=== PATIENT | female | born 1970 | race Two or more races ===

== ENCOUNTER 2025-02-15 10:05 | Emergency (ER) | payer MEDICAID, SELFPAY ==
[2025-02-15 10:07] VITALS: BMI 26.1
[2025-02-15 10:39] VITALS: BP 127/88; PULSE 87; RESP 18; TEMP 36.9; O2SAT 97; BMI 26.1
--- NOTE | 2025-02-15 10:41 | XR_ITS ---
Examination: CT abdomen and pelvis without contrast. Coronal 3-D reconstructions. Sagittal 2-D reconstructions. Date and time of exam:February 15, 2025 1131 hours INDICATIONS: Abdominal pain and diarrhea 2 weeks CTDI: vol (mGy): 6.64 DLP: (mGycm): 364 Technique: Axial images of the abdomen have been obtained, 3 mm slice thickness Intravenous contrast material has not been administered. Low dose protocols were performed. One or more of the following dose reduction techniques were used; automated exposure control, adjustment of the mA and/or KV according to patient size, use of iterative reconstruction technique. Findings: No focal liver or splenic lesions Absent gallbladder No extra hepatic biliary tract dilatation No pancreatic edema No renal or ureteral calculi, no hydronephrosis Normal appendix Small fat-containing umbilical hernia Mildly fluid distended small bowel loops No bowel obstruction No diverticulitis Anteverted uterus Moderate osteopenia No bladder mass IMPRESSION: Mildly fluid distended small bowel loops, consider ileus, enteritis, clinical correlation advised No bowel obstruction Normal appendix
--- NOTE | 2025-02-15 10:41 | PD.EDRME ---
Rapid Medical Screening Exam [facility] Arrival date/time: 02/15/25 10:05 54-year-old female with no known medical history presents to the emergency room with a chief complaint of 8 out of 10 left lower quadrant abdominal pain that radiates to her bilateral flanks. Patient states she is also had diarrhea for 1 week. Patient denies any blood in the stool. I have greeted and performed a focused initial assessment of this patient. A comprehensive ED assessment and evaluation of the patient, analysis of all test results, and completion of the medical decision making process will be conducted by additional ED providers. Chief Complaint: Nausea/Vomiting/Diarrhea Time Seen by Provider: 02/15/25 10:12 Vital signs: Vital Signs Temperature 98.4 F 02/15/25 10:39 Pulse Rate 87 02/15/25 10:39 Respiratory Rate 18 02/15/25 10:39 Blood Pressure 127/88 H 02/15/25 10:39 Pulse Oximetry (%) 97 02/15/25 10:39 Oxygen Delivery Method Room Air 02/15/25 10:39 Vital signs reviewed by provider: Yes
[2025-02-15 11:30] LABS: Collection Type, Urine Clean Catch; RBC,Urine 0 /hpf (0-3); WBC,Urine 0 /hpf (0-5)
[2025-02-15 11:41] LABS: Basophils % (Auto) 1 % (0-2.5); Eosinophils # (Auto) 0.1 Thou/mm3 (0.0-0.5); Eosinophils % (Auto) 3 % (0-10); Hematocrit 42.8 % (36.0-46.0); Hemoglobin 15.1 g/dL (12.0-16.0); Immature Granulocytes % (Auto) 0 % (0-0); Immature Granulocytes Auto 0.02 Thou/mm3 (0.00-0.00); Lymphocytes # (Auto) 1.5 Thou/mm3 (1.0-4.8); Lymphocytes % (Auto) 29 % (10-50); Mean Corpuscular HGB Conc 35.3 g/dl (31.0-37.0); Mean Corpuscular Hemoglobin 30.9 pg (25.0-35.0); Mean Corpuscular Volume 88 fL (80-100); Monocytes # (Auto) 0.3 Thou/mm3 (0.0-0.8); Monocytes % (Auto) 6 % (0-12); Neutrophils # (Auto) 3.3 Thou/mm3 (1.8-7.7); Neutrophils % (Auto) 62 % (37-80); Nucleated Red Blood Cell % 0 /100 WBC (0); Platelet Count 288 Thou/mm3 (140-440); RDW Standard Deviation 38.4 fL (36.4-46.3); Red Blood Count 4.88 Miln/mm3 (4.00-5.20); White Blood Count 5.3 Thou/mm3 (3.6-11.0)
[2025-02-15 11:58] LABS: Alanine Aminotransferase 40 U/L (10-49); Albumin, Serum 4.6 gm/dL (3.5-5.0); Albumin/Globulin Ratio 1.6 (1.2-2.2); Alkaline Phosphatase 77 U/L (46-116); Anion Gap 9 (7-16); Aspartate Amino Transferase 30 U/L (0-34); BUN/Creatinine Ratio 10 Ratio (12-20); Bilirubin,Total 0.6 mg/dL (0.3-1.2); Blood Urea Nitrogen 8 mg/dL (9-23); Calcium 9.8 mg/dL (8.3-10.6); Calcium (Corrected) 9.8 mg/dL (8.5-10.1); Carbon Dioxide 27.2 mMol/L (20.0-31.0); Chloride 104 mMol/L (98-107); Creatinine (Component) 0.8 mg/dL (0.6-1.3); Estimated Creatinine Clearance 78.6 mL/min (>60); Globulin 2.9 gm/dL (2.3-3.5); Glucose 110 mg/dL (74-106); Lipase 56 U/L (12-53); Osmolality,Calculated 278 (275-295); Potassium 3.9 mMol/L (3.4-5.1); Sodium 140 mMol/L (136-145); Total Protein 7.5 gm/dL (5.7-8.2); eGFR > 60 See Note
--- NOTE | 2025-02-15 12:06 | EDNOTE_ITS ---
ED Abdominal Pain RME/HPI General Chief Complaint: Nausea/Vomiting/Diarrhea Stated complaint: VOMITING, DIARRHEA, L) SIDE ABD PAIN X 9 DAYS Time seen by provider: 02/15/25 10:12 Arrival date/time: 02/15/25 10:05 54 year old female present to emergency room with c/o of LLQ for 9 days. nausea,vomiting, diarrhea. no international travel. LOCATION: generalized periumbical abdominal pain SEVERITY: Symptoms are described as being severe with limitations on activities of daily living QUALITY: Symptoms are described as being cramping CONTEXT: The patient is unable to identify any inciting events. DURATION/TIMING: The symptoms started approximately 9 day ago and have been constant this then, and have been progressive getting worse. ASSOCIATED SYMPTOMS: The patient is unable to identify any other associated symptoms. MODIFYING FACTORS: The patient is unable to identify any alleviating or aggravating symptoms. PERTINENT ROS: reports emesis is nonbloody, diarrhea is nonbloody, no recent foreign travel, no recent ingestion of raw seafood or meat, no head trauma, no headache, no chest pain, no orthostatis symptoms, denies any toxicological ingestions REVIEW OF SYSTEMS: See History of Present Illness - with the exception of those mentioned in the history of present illness, all other systems reviewed and reported as negative GENERAL: In general the patient is awake, interactive, in an emergency department gurney. HEAD/EYES/EARS/NOSE/THROAT: normo-cephalic, atraumatic, mucus membranes are mo ist, anicteric, palpebral conjunctiva is pink, trachea is midline. CARDIOVASCULAR: regular rate and regular rhythm, no murmurs, heart sounds are not distant, strong pulses in all four extremities that are equal and symmetric bilateral upper and lower extremities, normal capillary refill. CHEST/PULMONARY: normal chest rise and fall, good air movement, clear to auscultation bilaterally, normal inspiratory to expiratory ratios without evidence of respiratory distress. NECK: No midline/Paraspinal tenderness, no step off ROM/Strenght intact No Kernig and bruzinski sign. No trauma ABDOMEN: soft, not tender, no masses appreciated BACK: normal range of motion without pain. NEUROLOGICAL: cranio-facial features are symmetric, moves all four extremities equally without obvious limitations or weakness. EXTREMITY: no tenderness to palpation over the long bones or large joints of the bilateral upper and lower extremities, no joint swelling, no joint erythema, no signs of trauma, no unilateral leg swelling and no peripheral edema. SKIN: warm, dry, well-perfused, no jaundice, no rash, no telangiectasias or petechia. PSYCH: calm, cooperative, no evidence of psychosis or agitation RME / HPI RME / HPI narrative: 02/15/25 10:05 54-year-old female with no known medical history presents to the emergency room with a chief complaint of 8 out of 10 left lower quadrant abdominal pain that radiates to her bilateral flanks. Patient states she is also had diarrhea for 1 week. Patient denies any blood in the stool. I have greeted and performed a focused initial assessment of this patient. A comprehensive ED assessment and evaluation of the patient, analysis of all test results, and completion of the medical decision making process will be conducted by additional ED providers. Related Data Home Medications ?Medication ?Instructions ?Recorded ?Confirmed multivitamin (Multiple Vitamins 1 tab PO QAM 12/05/20 12/05/20 tablet) Previous Rx's ?Medication ?Instructions ?Recorded docusate sodium 100 mg capsule 100 mg PO BID #60 caps 12/06/20 (Colace) hydrocodone 5 mg-acetaminophen 325 1 tab PO Q6H PRN pa in (scale score 12/06/20 mg tablet (Harrold) 7-10) #20 tabs ibuprofen 600 mg tablet 600 mg PO Q8H PRN pain (scal e 12/06/20 score 4-6) #15 tabs azithromycin 500 mg tablet 500 mg PO QDAY 3 days #3 ta bs 02/15/25 ondansetron 4 mg disintegrating 4 mg PO Q8H PRN nausea and 02/15/25 tablet vomiting #14 tabs Allergies Allergy/AdvReac Type Severity Reaction Status Date / Time Dunlevy And Derivatives Allergy Blister Verified 02/15/25 10:09 Course Quality Measures none Orders Category Date Time Status CT abdomen pelvis wo con Stat Exams 02/15/25 10:41 Completed CBC Stat Lab 02/15/25 11:12 Completed CMP [Comprehensive Metabolic Panel] Stat Lab 02/15/25 11:12 Completed HCG Qualitative,Urine Stat Lab 02/15/25 11:00 Completed Lipase Stat Lab 02/15/25 11:12 Completed UA [Urinalysis] Stat Lab 02/15/25 11:00 Completed Urine Culture Stat Lab 02/15/25 11:00 Received Acetaminophen Ivpb [Ofirmev Inj] Med 02/15/25 12:24 Discontinued 1,000 mg in 100 ml IV X1 Ondansetron Inj [Zofran Inj] Med 02/15/25 12:24 Discontinued 4 mg IV X1 ONE Sodium Chloride 0.9% 1000 ml [Ns] 1,000 ml Med 02/15/25 12:24 Discontinued IV 999 mls/hr Vital Signs Vital signs: Vital Signs Temperature 98.4 F 02/15/25 10:39 Pulse Rate 87 02/15/25 10:39 Respiratory Rate 18 02/15/25 10:39 Blood Pressure 127/88 H 02/15/25 10:39 Pulse Oximetry (%) 97 02/15/25 10:39 Oxygen Delivery Method Room Air 02/15/25 10:39 Abdominal Pain MDM MDM Narrative MDM Narrative:: Patient presenting with nausea, vomiting, and diarrhea.? Vital signs were reviewed.? Patient afebrile.? Abdominal exam is benign.? No evidence of acute surgical emergency or infection requiring antibiotics.? I considered biliary disease, bowel obstruction, colitis, mesenteric ischemia, appendicitis, urinary tract infection, infectious diarrhea, however, these are less likely given the history and exam.? While in ED patient was provided with IV fluids, zofran, tylenol 1 gram , at which point patient stated that their symptoms had improved. Provided with prescription for zofran, azithromycin . Advised to continue Ibuprofen and Tylenol at home as needed for pain/fever. Patient is to followup with primary physician if symptoms continue. Advised to return to the ER if concern for inability to tolerate PO intake, dehydration, or other concerns. Plan:?? Rx: azithromycin 500mg daily for 3 days for tx for possible traveller diarrhea Ibuprofen/Acetaminophen for Pain/Fever Prescription for ondansetron for nausea. Pt was advised on supportive therapies, including increasing dietary fiber, eating smaller meals, refrain from eating copious amounts of irritating foods (fatty foods, milk products, chocolate, and caffeine), maintaining a food diary, advancing fluids as tolerated, refraining from EtOH consumption, decreasing stress, and increasing exercise. Maintain Fluid Intake: Pedialyte/Gatorade, Juice, Non-caffeinated Pop (Sprite) Patient to follow up with PCP or in ER should symptoms worsen or not improve. Patient verbally expressed understanding and all questions were addressed. Patient data External records reviewed:: [facility] previous records Clinical information provided by:: patient Social determinants that could affect healthcare access:: none Patient has the following chronic illnesses:: n/a How is presenting disease/condition affected by chronic disease/condition?: no chronic disease Evaluation data The following diagnostics were reviewed and interpreted by me:: lab results and radiology exam(s) Lab and/or radiology exams considered but not ordered:: n/a Interpretation Summary: CT:?No focal liver or splenic lesions Absent gallbladder No extra hepatic biliary tract dilatation No pancreatic edema No renal or ureteral calculi, no hydronephrosis Normal appendix Small fat-containing umbilical hernia Mildly fluid distended small bowel loops No bowel obstruction No diverticulitis Anteverted uterus Moderate osteopenia No bladder mass IMPRESSION: Mildly fluid distended small bowel loops, consider ileus, enteritis, clinical correlation advised No bowel obstruction Normal appendix CBC/CMP urine no acute findings Medications / Prescriptions Medications or Prescriptions considered but not ordered:: n/a Medication administrations:: Medication Administration History Discontinued Medications Sodium Chloride (Ns) 1,000 mls @ 999 mls/hr IV .Q1H1M ONE Stop: 02/15/25 13:24 Last Infusion: 02/15/25 14:00 Dose: Infused Documented By: Admin: 02/15/25 13:27 Dose: 999 mls/hr Documented By: KASEY Acetaminophen (Ofirmev Inj) 1,000 mg in 100 mls @ 250 mls/hr IV X1 ONE Stop: 02/15/25 12:47 Last Infusion: 02/15/25 14:00 Dose: Infused Documented By: Admin: 02/15/25 13:29 Dose: 250 mls/hr Documented By: KASEY Ondansetron HCl (Ondansetron Inj 2 Mg/Ml Inj 2 Ml) 4 mg IV X1 ONE; Protocol Stop: 02/15/25 12:25 Last Admin: 02/15/25 13:28 Dose: 4 mg Documented By: KASEY as stated above Consultations Consultation(s) initiated? (list below): No Diagnosis Differential diagnosis abdominal pain: abdominal pain, acute appendicitis, calculus of kidney, constipation, diverticulitis, gastroenteritis, pancreatitis and small bowel obstruction Most likely diagnosis given after review of the tests above:: gastroenteritis Admission Indicated Admission indicated?: not indicated Admission Request Was there a request for admission?: No Disposition Plan Disposition Plan: Discharge Discharge Attestation Discharge Attestation: The patient and all family members were given an opportunity to ask questions and understood the discharge instructions. Discharge instructions specifically effects, indications for sooner follow up or return to the emergency department, and the expected course of current diagnosis. Patient condition: Stable Discharge Plan Plan Patient Disposition: HOME (Self Care) Health Concerns: Follow with PMD as directed Take tylenol or motrin as need Return to ED if sx worsen Prescriptions/Referrals Prescriptions/Med Rec: New azithromycin 500 mg tablet 500 mg PO QDAY 3 Days Qty: 3 0RF ondansetron 4 mg tablet,disintegrating 4 mg PO Q8H PRN (Reason: nausea and vomiting) Qty: 14 0RF No Action multivitamin [Multiple Vitamins] Tablet 1 tab PO QAM hydrocodone-acetaminophen [Harrold] 5-325 mg tablet 1 tab PO Q6H MDD 4 PRN (Reason: pain (scale score 7-10)) Qty: 20 0RF ibuprofen 600 mg tablet 600 mg PO Q8H PRN (Reason: pain (scale score 4-6)) Qty: 15 0RF docusate sodium [Colace] 100 mg capsule 100 mg PO BID Qty: 60 0RF Referrals: No Primary/Family,Physician [Primary Care Provider] - In 1 week Problem List Clinical Impression: Gastroenteritis Patient/Caregiver Discharge Instructions Education Materials: ED Gastroenteritis, Noninfectious Print Language: Haitian Stand Alone Forms: Mansi Award Info., Patient Portal Info Letter
[2025-02-15 12:10] LABS: HCG Qualitative,Urine Negative
[2025-02-15 12:22] LABS: Bilirubin,Urine Negative (Negative); Blood,Urine Negative (Negative); Clarity,Urine Clear (Clear/Hazy); Color,Urine Colorless (Lt Yel-Yel); Glucose, Urine Negative (Negative); Ketones,Urine Negative (Negative); Leukocyte Esterase,Urine Negative (Negative); Nitrite,Urine Negative (Negative); Protein,Urine Negative (Neg - Trace); Specific Gravity,Urine 1.008 (1.001-1.035); Squamous Epithelial Cell,Urine 1 /hpf (0-5); Urobilinogen,Urine Negative mg/dL (0.0-1.0)
[2025-02-15] MEDS: SODIUM CHLORIDE 0.9% 1000 ML 1,000 ML 999 ML IV (13:27)
[2025-02-15] MEDS: ONDANSETRON INJ 2 MG/ML INJ 2 ML 4 MG IV (13:28)
[2025-02-15] MEDS: ACETAMINOPHEN IVPB 1,000 MG/100 ML VIAL 250 MG IV (13:29)
== END 2025-02-15 14:13 | disposition home or self-care (01) ==
PROVIDERS: Nurse Practitioner Family; Emergency Provider Emergency Medicine
DX: K52.9 Noninfective gastroenteritis and colitis, unspecified (principal)
CPT/HCPCS: 36415; 74176; 80053; 81001; 81025; 83690; 85025; 87086; 96365; 96375; J0131; J2405; J7030